=== PATIENT | male | born 1950 | race Caucasian/White ===

== ENCOUNTER 2017-09-10 20:49 | Emergency (ER) | payer MEDICARE, MEDICAID ==
[~2017-09-10] VITALS: Ht 175.3 cm; Wt 118.0 kg
[2017-09-10] MEDS ORDERED: normal saline 1000ML IV soln IVB ONE (20:55)
[2017-09-10] MEDS ORDERED: proparacaine 0.5% ophthalmic drops 15ml LEFTEYE ONE (20:55)
[2017-09-10 21:12] LABS: BASOPHILS % (AUTO) 0.1 % (0-1); EOSINOPHILS # (AUTO) 0.1 X10'3 (0-0.9); EOSINOPHILS % (AUTO) 0.9 % (0-6); HEMATOCRIT 45.1 % (42.0-52.0); HEMOGLOBIN 15.3 g/dl (14.0-17.9); LYMPHOCYTES # (AUTO) 2.9 X10'3 (1.1-4.8); LYMPHOCYTES % (AUTO) 34.1 % (21-51); MEAN CORPUSCULAR HEMOGLOBIN 26.9 PG (27.0-31.0); MEAN CORPUSCULAR HGB CONC 33.9 % (33.0-36.5); MEAN CORPUSCULAR VOLUME 79.3 FL (78-98); MEAN PLATELET VOLUME 7.1 FL (7.4-10.4); MONOCYTES # (AUTO) 1.3 X10'3 (0-0.9); MONOCYTES % (AUTO) 16.1 % (2-12); NEUTROPHILS # (AUTO) 4.1 X10'3 (1.8-7.7); NEUTROPHILS % (AUTO) 48.8 % (42-75); PLATELET COUNT 273 X10'3 (140-440); RED BLOOD COUNT 5.69 X10'6 (4.70-6.10); RED CELL DISTRIBUTION WIDTH 14.9 % (11.5-14.5); WHITE BLOOD COUNT 8.4 X10'3 (4.5-11.0)
[2017-09-10 21:28] LABS: ALANINE AMINOTRANSFERASE 49 U/L (12-78); ALBUMIN 3.3 G/DL (3.4-5.0); ALBUMIN/GLOBULIN RATIO 0.7 (1.1-1.5); ALKALINE PHOSPHATASE 72 IU/L (46-116); ANION GAP 12 (8-16); ASPARTATE AMINO TRANSFERASE 36 U/L (10-37); BILIRUBIN,TOTAL 0.4 MG/DL (0.1-1.0); BLOOD UREA NITROGEN 24 MG/DL (7-18); BUN/CREATININE RATIO 14.4 (5.4-32.0); CHLORIDE 98 MMOL/L (99-107); CREATININE 1.67 MG/DL (0.60-1.10); ETHANOL < 0.010 GM/DL (0.0-0.010); GLUCOSE 178 MG/DL (70-104); POTASSIUM 3.8 MMOL/L (3.5-5.1); SODIUM 135 MMOL/L (135-145); TOTAL CARBON DIOXIDE 25.5 MMOL/L (24-32); TOTAL PROTEIN 7.9 G/DL (6.4-8.2); eGFR 41 ML/MIN
[2017-09-10] MEDS ORDERED: PROPARACAINE/FLUORESCEIN ophthalmic drops 5ml bottle LEFTEYE ONE (21:30)
[2017-09-10] MEDS ORDERED: CEPH500C5 PO (21:46)
[2017-09-10 21:57] LABS: PROTHROMBIN TIME 10.8 SECONDS (9.0-12.0)
[2017-09-10] MEDS ORDERED: cephalexin 500mg capsule PO ONE (22:00)
[2017-09-10 22:09] VITALS: BP 143/79
== END 2017-09-10 22:18 | disposition home or self-care (01) ==
LOC: ER 20:49
DX: R21 Rash and other nonspecific skin eruption (principal); A48.8 Other specified bacterial diseases; I25.10 Atherosclerotic heart disease of native coronary artery without angina pectoris; I10 Essential (primary) hypertension; E11.9 Type 2 diabetes mellitus without complications; Z79.899 Other long term (current) drug therapy
CPT/HCPCS: 36415; 71045; 80053; 80320; 82948; 85025; 85610; 93005; 99285; J7030

== ENCOUNTER 2017-11-22 23:36 | Inpatient (IN) | payer MEDICARE, MEDICAID ==
[~2017-11-22] VITALS: Ht 175.3 cm; Wt 129.0 kg
[~2017-11-22 23:36] MED LIST: CEPH500C5 PO
[2017-11-23] MEDS ORDERED: ondansetron/PF 4mg/2ml inj IV ONE (00:10)
[2017-11-23] MEDS ORDERED: morphine 4 MG/ML inj SYRINge IV ONE (00:10)
[2017-11-23] MEDS ORDERED: normal saline 1000ML IV soln IVB ONE (00:10)
[2017-11-23 01:04] LABS: BASOPHILS % (AUTO) 0.2 % (0-1); EOSINOPHILS % (AUTO) 0 % (0-6); HEMATOCRIT 44.8 % (42.0-52.0); HEMOGLOBIN 14.1 g/dl (14.0-17.9); LYMPHOCYTES # (AUTO) 1.2 X10'3 (1.1-4.8); LYMPHOCYTES % (AUTO) 11.2 % (21-51); MEAN CORPUSCULAR HEMOGLOBIN 26.5 PG (27.0-31.0); MEAN CORPUSCULAR HGB CONC 31.4 % (33.0-36.5); MEAN CORPUSCULAR VOLUME 84.6 FL (78-98); MEAN PLATELET VOLUME 8.8 FL (7.4-10.4); MONOCYTES # (AUTO) 0.3 X10'3 (0-0.9); MONOCYTES % (AUTO) 3.1 % (2-12); NEUTROPHILS # (AUTO) 9.2 X10'3 (1.8-7.7); NEUTROPHILS % (AUTO) 85.5 % (42-75); PLATELET COUNT 229 X10'3 (140-440); RED CELL DISTRIBUTION WIDTH 16.9 % (11.5-14.5); WHITE BLOOD COUNT 10.7 X10'3 (4.5-11.0)
[2017-11-23 01:15] LABS: INR 1.9 INR; PARTIAL THROMBOPLASTIN TIME 26 SECONDS (22-32); PROTHROMBIN TIME 19.4 SECONDS (9.0-12.0)
[2017-11-23 01:29] LABS: ALANINE AMINOTRANSFERASE 198 U/L (12-78); ALBUMIN 3.2 G/DL (3.4-5.0); ALBUMIN/GLOBULIN RATIO 0.7 (1.1-1.5); ALKALINE PHOSPHATASE 74 IU/L (46-116); ANION GAP 17 (8-16); ASPARTATE AMINO TRANSFERASE 106 U/L (10-37); BILIRUBIN,TOTAL 2.5 MG/DL (0.1-1.0); BLOOD UREA NITROGEN 61 MG/DL (7-18); BUN/CREATININE RATIO 25.1 (5.4-32.0); CALCIUM 8.6 MG/DL (8.5-10.1); CHLORIDE 97 MMOL/L (99-107); CREATININE 2.43 MG/DL (0.60-1.10); GLUCOSE 161 MG/DL (70-104); LIPASE 217 U/L (73-393); MAGNESIUM 1.7 MG/DL (1.5-2.4); POTASSIUM 5.2 MMOL/L (3.5-5.1); SODIUM 132 MMOL/L (135-145); TOTAL CARBON DIOXIDE 18.3 MMOL/L (24-32); TOTAL PROTEIN 7.6 G/DL (6.4-8.2); eGFR 27 ML/MIN
[2017-11-23] MEDS ORDERED: normal saline 1000ml 1,000 ML IV ONE ×2 (01:45→08:20)
[2017-11-23] MEDS ORDERED: EFF25T PO (02:13)
[2017-11-23] MEDS ORDERED: BENA20TA82 PO (02:13)
[2017-11-23] MEDS ORDERED: COU4T PO (02:13)
[2017-11-23] MEDS ORDERED: GABA-530 PO (02:13)
[2017-11-23] MEDS ORDERED: GLIM4TAB79 PO (02:13)
[2017-11-23] MEDS ORDERED: BECL10.62 (02:13)
[2017-11-23] MEDS ORDERED: PANT20TA2 PO (02:13)
[2017-11-23] MEDS ORDERED: TIOT18CA3 (02:13)
[2017-11-23] MEDS ORDERED: ALBU18HF2 INH (02:13)
[2017-11-23 02:17] LABS: CLARITY,URINE CLEAR (Clear); COLOR,URINE YELLOW (Yellow); GLUCOSE, URINE NEGATIVE (Neg); KETONES,URINE NEGATIVE (Neg); LEUKOCYTE ESTERASE ,URINE SMALL (Neg); NITRITES, URINE NEGATIVE (Neg); OCCULT BLOOD,URINE MODERATE (Neg); PH,URINE 5.5 (4.8-8.0); PROTEIN,URINE 100 mg/dl (Neg)
[2017-11-23 02:23] LABS: UA COLLECTION TYPE CLN CATCH MIDSTREAM
[2017-11-23 02:24] LABS: WBC,URINE 20-30 /HPF (0-4)
[2017-11-23 02:25] LABS: BACTERIA,URINE 2+ /HPF (Neg); SQUAMOUS EPITHELIAL CELL,UR FEW /LPF (FEW); WBC CLUMPS,URINE FEW /HPF (NEGATIVE)
[2017-11-23] MEDS ORDERED: acetaminophen 325mg tablet PO PRN (02:45)
[2017-11-23] MEDS ORDERED: HYDROmorphone inj. 0.5 MG/0.5 ML DISP.SYRIN IV PRN ×2 (02:45)
[2017-11-23] MEDS ORDERED: sodium bicarbonate inj. 133.8 MEQ in dextrose 5%-water 1,001.3333 ML IV SCH (02:45)
[2017-11-23] MEDS ORDERED: magnesium hydroxide 30ml (MOM) UD suspension PO PRN (02:45)
[2017-11-23] MEDS ORDERED: mag hydrox/Alum hydrox/simeth 30ml oral suspension PO PRN (02:45)
[2017-11-23] MEDS ORDERED: sodium bicarbonate (8.4%) inj. 150 MEQ in dextrose 5%-water 1,000 ML IV SCH ×2 (02:45→03:22)
[2017-11-23] MEDS ORDERED: MESSAGE TO PHARMACY PO ONE (02:50)
[2017-11-23] MEDS ORDERED: dextrose 50%-water 50ml dispensing syringe IV PRN (02:50)
[2017-11-23] MEDS ORDERED: dextrose ORAL solution 15 GM/59 ML bottle PO PRN ×2 (02:50)
[2017-11-23] MEDS ORDERED: albuterol 2.5 MG/3 ML nebule NEB PRN (02:50)
[2017-11-23] MEDS ORDERED: glucagon, human recombinant 1mg kit SUBCUT PRN (02:50)
[2017-11-23 03:45] VITALS: BP 142/89
[2017-11-23 06:00] VITALS: BP 141/90
[2017-11-23] MEDS: gabapentin 100mg capsule PO SCH ×2 (07:27→16:52)
[2017-11-23] MEDS: pantoprazole 40mg Tablet.DR PO SCH (07:27)
[2017-11-23] MEDS: ondansetron/PF 4mg/2ml inj IV PRN (07:40)
[2017-11-23] MEDS ORDERED: warfarin 4mg tablet PO SCH (08:00)
[2017-11-23] MEDS ORDERED: magnesium 1gm/100ml D5W IVPB 100 ML IV PRN (08:10)
[2017-11-23] MEDS ORDERED: heparin 10,000 units/1 ML INJ IV ONE (08:10)
[2017-11-23] MEDS ORDERED: potassium Cl 20 mEq SR tablet PO PRN ×2 (08:10)
[2017-11-23] MEDS ORDERED: potassium Cl 40MEQ/NS 500ml 500 ML IV PRN ×2 (08:10)
[2017-11-23] MEDS ORDERED: sodium polystyrene sulfonate 15gm/60ml oral suspension PO ONE (08:10)
[2017-11-23] MEDS ORDERED: magnesium Cl slow-release 64mg tablet PO PRN (08:10)
[2017-11-23] MEDS: venlafaxine 25mg tablet PO SCH (08:24)
[2017-11-23] MEDS: insulin Lispro (HumaLOG) vial - multi-dose SQ SCH ×2 (08:31→13:01)
[2017-11-23 09:03] LABS: BASOPHILS % (AUTO) 0.2 % (0-1); EOSINOPHILS # (AUTO) 0.2 X10'3 (0-0.9); EOSINOPHILS % (AUTO) 1.6 % (0-6); HEMATOCRIT 41.2 % (42.0-52.0); HEMOGLOBIN 13.3 g/dl (14.0-17.9); LYMPHOCYTES % (AUTO) 8.7 % (21-51); MEAN CORPUSCULAR HEMOGLOBIN 27.1 PG (27.0-31.0); MEAN CORPUSCULAR HGB CONC 32.3 % (33.0-36.5); MEAN PLATELET VOLUME 8.9 FL (7.4-10.4); MONOCYTES # (AUTO) 0.4 X10'3 (0-0.9); NEUTROPHILS # (AUTO) 9.4 X10'3 (1.8-7.7); NEUTROPHILS % (AUTO) 85.5 % (42-75); PLATELET COUNT 229 X10'3 (140-440); RED BLOOD COUNT 4.91 X10'6 (4.70-6.10); RED CELL DISTRIBUTION WIDTH 17.1 % (11.5-14.5)
[2017-11-23 09:14] LABS: INR 2.1 INR; PARTIAL THROMBOPLASTIN TIME 30 SECONDS (22-32); PROTHROMBIN TIME 21.1 SECONDS (9.0-12.0)
[2017-11-23] MEDS: heparin 25,000 UNIT/250ml bag 250 ML IV SCH ×3 (10:35→19:48)
[2017-11-23] MEDS: CefTRIAXone/D5W-Rocephin 1gm 50 ML IV SCH (10:45)
[2017-11-23 11:00] VITALS: BP_SYST 117; BP_SYST 91; BP_DIAS 63; BP_DIAS 84
[2017-11-23 15:00] VITALS: BP 152/91
[2017-11-23] MEDS ORDERED: metoprolol tartrate 1mg/ml inj IV PRN (15:50)
[2017-11-23] MEDS ORDERED: regadenoson 0.4mg/5ml syringe IV ONE (15:50)
[2017-11-23] MEDS ORDERED: CAFFEINE CITRATE 60 MG/3 ML injection vial IV PRN (15:50)
[2017-11-23] MEDS: sodium bicarbonate (8.4%) inj. 100 MEQ in sodium chloride 0.45% 1,000 ML IV SCH (16:40)
[2017-11-23] MEDS: povidone-iodine 120ml topical solution TP SCH (17:02)
[2017-11-23 19:00] VITALS: BP 131/78
[2017-11-23 20:50] LABS: ABG BASE EXCESS -11.6 mmol/L (-2.0-3.0); ABG HCO3 11.2 mmol/L (22.0-26.0); ABG OXYGEN SATURATION 97.7 % (95-98); ABG PCO2 (T) 19.9 mmHg (35.0-48.0); ABG PH (T) 7.367 (7.350-7.450); ABG PO2 (T) 110.7 mmHg (83-108); ALLEN'S TEST Positive; FCOHb 0.9 % (0.5-1.5); FLOW 2 L/min; FMetHb 0.2 % (0.3-1.12); FO2Hb 96.6 % (94-100); TOTAL HEMOGLOBIN 14.5 G/dl (14.0-18.0)
[2017-11-23] MEDS ORDERED: warfarin 10mg tablet PO SCH (21:00)
[2017-11-23] MEDS: insulin glargine (Lantus) pen - multi-dose SQ SCH (22:04)
[2017-11-23 23:00] VITALS: BP 130/80
[2017-11-24] VITALS (11 sets, daily range): BP systolic 129–152; BP diastolic 62–101
[2017-11-24] MEDS: heparin 10,000 units/1 ML INJ IV PRN ×2 (00:28→21:39)
[2017-11-24] MEDS: heparin 25,000 UNIT/250ml bag 250 ML IV SCH ×3 (00:30→17:50)
[2017-11-24] MEDS: gabapentin 100mg capsule PO SCH ×3 (00:34→16:00)
[2017-11-24] MEDS: ondansetron/PF 4mg/2ml inj IV PRN ×3 (02:18→21:20)
[2017-11-24] MEDS: nitroGLYCERIN 0.4mg SUBLingual tab SL PRN ×3 (05:51→06:13)
[2017-11-24] MEDS: pantoprazole 40mg Tablet.DR PO SCH (07:13)
[2017-11-24] MEDS: CefTRIAXone/D5W-Rocephin 1gm 50 ML IV SCH (07:14)
[2017-11-24 07:22] LABS: BASOPHILS % (AUTO) 0.1 % (0-1); EOSINOPHILS % (AUTO) 0 % (0-6); HEMATOCRIT 39.1 % (42.0-52.0); HEMOGLOBIN 12.8 g/dl (14.0-17.9); LYMPHOCYTES # (AUTO) 0.8 X10'3 (1.1-4.8); LYMPHOCYTES % (AUTO) 5.2 % (21-51); MEAN CORPUSCULAR HEMOGLOBIN 27.5 PG (27.0-31.0); MEAN CORPUSCULAR HGB CONC 32.7 % (33.0-36.5); MEAN CORPUSCULAR VOLUME 83.9 FL (78-98); MEAN PLATELET VOLUME 8.8 FL (7.4-10.4); MONOCYTES # (AUTO) 0.6 X10'3 (0-0.9); MONOCYTES % (AUTO) 3.5 % (2-12); NEUTROPHILS # (AUTO) 14.8 X10'3 (1.8-7.7); NEUTROPHILS % (AUTO) 91.2 % (42-75); PLATELET COUNT 194 X10'3 (140-440); RED BLOOD COUNT 4.66 X10'6 (4.70-6.10); RED CELL DISTRIBUTION WIDTH 16.9 % (11.5-14.5); WHITE BLOOD COUNT 16.2 X10'3 (4.5-11.0)
[2017-11-24] MEDS: morphine 2 MG/ML inj. syringe IV PRN ×2 (07:31→21:20)
[2017-11-24] MEDS: venlafaxine 25mg tablet PO SCH (07:32)
[2017-11-24 07:39] LABS: ALANINE AMINOTRANSFERASE 348 U/L (12-78); ALBUMIN 2.5 G/DL (3.4-5.0); ALBUMIN/GLOBULIN RATIO 0.7 (1.1-1.5); ALKALINE PHOSPHATASE 62 IU/L (46-116); ANION GAP 13 (8-16); ASPARTATE AMINO TRANSFERASE 310 U/L (10-37); BILIRUBIN,TOTAL 1.7 MG/DL (0.1-1.0); BLOOD UREA NITROGEN 79 MG/DL (7-18); BUN/CREATININE RATIO 31.6 (5.4-32.0); CALCIUM 7.8 MG/DL (8.5-10.1); CHLORIDE 96 MMOL/L (99-107); GLUCOSE 219 MG/DL (70-104); POTASSIUM 4.6 MMOL/L (3.5-5.1); SODIUM 133 MMOL/L (135-145); TOTAL CARBON DIOXIDE 23.8 MMOL/L (24-32); TOTAL PROTEIN 6.1 G/DL (6.4-8.2); eGFR 26 ML/MIN
[2017-11-24] MEDS: povidone-iodine 120ml topical solution TP SCH (08:00)
[2017-11-24] MEDS ORDERED: regadenoson 0.4mg/5ml syringe IV ONE (09:06)
[2017-11-24] MEDS ORDERED: CAFFEINE CITRATE 60 MG/3 ML injection vial IV ONE (09:06)
[2017-11-24] MEDS ORDERED: LIDOcaine 1%/PF 5ML 10 MG/ML VIAL SQ ONE (13:35)
[2017-11-24] MEDS ORDERED: fentaNYL/PF 50MCG/1 ML 2ML syringe IV PRN (13:35)
[2017-11-24] MEDS ORDERED: midazolam 2 mg/2 ml injection IV PRN (13:35)
[2017-11-24] MEDS ORDERED: heparin 1,000 UNITS/NS 500ml 500 ML ICATH ONE (13:35)
[2017-11-24] MEDS ORDERED: LIDOcaine 1%/PF 5ML 10 MG/ML VIAL ONE (13:44)
[2017-11-24] MEDS ORDERED: iohexol 300mg/ml 100ml inj. ONE (13:44)
[2017-11-24] MEDS: sodium bicarbonate (8.4%) inj. 100 MEQ in sodium chloride 0.45% 1,000 ML IV SCH (13:45)
[2017-11-24] MEDS ORDERED: heparin 1,000 UNITS/NS 500ml 500 ML ONE ×2 (14:01→15:24)
[2017-11-24] MEDS ORDERED: ondansetron/PF 4mg/2ml inj ONE (14:01)
[2017-11-24] MEDS ORDERED: fentaNYL/PF 50MCG/1 ML 2ML syringe ONE (14:19)
[2017-11-24] MEDS: insulin glargine (Lantus) pen - multi-dose SQ SCH (21:09)
[2017-11-25] MEDS: gabapentin 100mg capsule PO SCH ×3 (00:41→16:21)
[2017-11-25 02:00] VITALS: BP 142/73
[2017-11-25 05:03] LABS: MEAN PLATELET VOLUME 8.7 FL (7.4-10.4)
[2017-11-25 05:08] LABS: HEMATOCRIT 43.7 % (42.0-52.0); HEMOGLOBIN 14.3 g/dl (14.0-17.9); MEAN CORPUSCULAR HEMOGLOBIN 27.5 PG (27.0-31.0); MEAN CORPUSCULAR HGB CONC 32.6 % (33.0-36.5); MEAN CORPUSCULAR VOLUME 84.2 FL (78-98); PLATELET COUNT 196 X10'3 (140-440); RED BLOOD COUNT 5.19 X10'6 (4.70-6.10); RED CELL DISTRIBUTION WIDTH 17.7 % (11.5-14.5); WHITE BLOOD COUNT 19.2 X10'3 (4.5-11.0)
[2017-11-25 05:18] LABS: ALANINE AMINOTRANSFERASE 707 U/L (12-78); ALBUMIN 2.8 G/DL (3.4-5.0); ALBUMIN/GLOBULIN RATIO 0.7 (1.1-1.5); ALKALINE PHOSPHATASE 78 IU/L (46-116); ANION GAP 15 (8-16); ASPARTATE AMINO TRANSFERASE 589 U/L (10-37); BILIRUBIN,TOTAL 2.2 MG/DL (0.1-1.0); BLOOD UREA NITROGEN 96 MG/DL (7-18); BUN/CREATININE RATIO 32.8 (5.4-32.0); CHLORIDE 96 MMOL/L (99-107); CREATININE 2.93 MG/DL (0.60-1.10); GLUCOSE 194 MG/DL (70-104); POTASSIUM 5.5 MMOL/L (3.5-5.1); SODIUM 133 MMOL/L (135-145); TOTAL CARBON DIOXIDE 21.9 MMOL/L (24-32); eGFR 22 ML/MIN
[2017-11-25 05:35] LABS: ANISOCYTOSIS 2+; LYMPHOCYTES % (MANUAL) 1 % (21-51); MONOCYTES % (MANUAL) 3 % (2-12); NEUTROPHILS % (MANUAL) 96 % (42-75); PLATELET ESTIMATE NORMAL; TOTAL CELLS COUNTED 100
[2017-11-25 05:36] LABS: BURR CELLS 1+; POLYCHROMASIA 1+
[2017-11-25 07:00] VITALS: BP 128/85
[2017-11-25] MEDS: CefTRIAXone/D5W-Rocephin 1gm 50 ML IV SCH (07:10)
[2017-11-25] MEDS: pantoprazole 40mg Tablet.DR PO SCH (07:10)
[2017-11-25] MEDS: venlafaxine 25mg tablet PO SCH (07:10)
[2017-11-25] MEDS: povidone-iodine 120ml topical solution TP SCH (07:20)
[2017-11-25] MEDS: heparin 25,000 UNIT/250ml bag 250 ML IV SCH (08:02)
[2017-11-25] MEDS: insulin Lispro (HumaLOG) vial - multi-dose SQ SCH ×3 (08:54→17:24)
[2017-11-25] MEDS: ondansetron/PF 4mg/2ml inj IV PRN (09:47)
[2017-11-25 11:00] VITALS: BP 142/68
[2017-11-25 11:49] LABS: CLARITY,URINE CLOUDY (Clear); COLOR,URINE YELLOW (Yellow); GLUCOSE, URINE NEGATIVE (Neg); KETONES,URINE NEGATIVE (Neg); LEUKOCYTE ESTERASE ,URINE SMALL (Neg); NITRITES, URINE NEGATIVE (Neg); OCCULT BLOOD,URINE SMALL (Neg); PROTEIN,URINE TRACE mg/dl (Neg)
[2017-11-25 11:53] LABS: OSMOLALITY UA 510 MOSM/K (50-1400)
[2017-11-25 11:57] LABS: UA COLLECTION TYPE NON-SPECIFIED
[2017-11-25 11:58] LABS: SODIUM,URINE RANDOM < 15 MEQ/L
[2017-11-25 12:02] LABS: SQUAMOUS EPITHELIAL CELL,UR MODERATE /LPF (FEW); WBC,URINE 30-50 /HPF (0-4)
[2017-11-25 12:03] LABS: BACTERIA,URINE 1+ /HPF (Neg); RBC,URINE 0-2 /HPF (0-2); WBC CLUMPS,URINE FEW /HPF (NEGATIVE)
[2017-11-25] MEDS: sodium bicarbonate (8.4%) inj. 100 MEQ in sodium chloride 0.45% 1,000 ML IV SCH (13:07)
[2017-11-25] MEDS: diatr meglu/diatrizoate 30ml oral sol.-(3 dose) bottle PO SCH ×3 (13:56→18:00)
[2017-11-25 15:00] VITALS: BP 122/87
[2017-11-25 15:01] LABS: PARTIAL THROMBOPLASTIN TIME 49 SECONDS (22-32)
[2017-11-25] MEDS: metroNIDAZOLE-Flagyl 500mg/NS 100 ML IV SCH (16:21)
[2017-11-25 18:00] VITALS: BP 139/82
[2017-11-25] MEDS: furosemide 40mg/4ml inj IV SCH (21:07)
[2017-11-25] MEDS: insulin glargine (Lantus) pen - multi-dose SQ SCH (21:24)
[2017-11-25 22:00] VITALS: BP 128/64
[2017-11-26] VITALS (17 sets, daily range): BP systolic 75–136; BP diastolic 46–94
[2017-11-26] MEDS: gabapentin 100mg capsule PO SCH ×3 (01:16→16:00)
[2017-11-26] MEDS: metroNIDAZOLE-Flagyl 500mg/NS 100 ML IV SCH ×3 (01:16→18:29)
[2017-11-26] MEDS: heparin 10,000 units/1 ML INJ IV PRN (01:55)
[2017-11-26] MEDS: heparin 25,000 UNIT/250ml bag 250 ML IV SCH (02:51)
[2017-11-26] MEDS ORDERED: pantoprazole 40 MG vial IV ONE (08:20)
[2017-11-26] MEDS: morphine 2 MG/ML inj. syringe IV PRN (08:22)
[2017-11-26] MEDS: pantoprazole 40mg Tablet.DR PO SCH (08:30)
[2017-11-26] MEDS: venlafaxine 25mg tablet PO SCH (08:31)
[2017-11-26] MEDS: furosemide 40mg/4ml inj IV SCH ×2 (08:31→20:00)
[2017-11-26 08:39] LABS: BASOPHILS # (AUTO) 0.1 X10'3 (0-0.2); BASOPHILS % (AUTO) 0.8 % (0-1); EOSINOPHILS # (AUTO) 0.1 X10'3 (0-0.9); HEMATOCRIT 36.8 % (42.0-52.0); HEMOGLOBIN 12.2 g/dl (14.0-17.9); LYMPHOCYTES # (AUTO) 0.9 X10'3 (1.1-4.8); LYMPHOCYTES % (AUTO) 6.8 % (21-51); MEAN CORPUSCULAR HEMOGLOBIN 27.4 PG (27.0-31.0); MEAN CORPUSCULAR HGB CONC 33.1 % (33.0-36.5); MEAN CORPUSCULAR VOLUME 82.6 FL (78-98); MEAN PLATELET VOLUME 8.6 FL (7.4-10.4); MONOCYTES # (AUTO) 0.8 X10'3 (0-0.9); MONOCYTES % (AUTO) 6.1 % (2-12); NEUTROPHILS # (AUTO) 11.8 X10'3 (1.8-7.7); NEUTROPHILS % (AUTO) 85.3 % (42-75); PLATELET COUNT 152 X10'3 (140-440); RED BLOOD COUNT 4.45 X10'6 (4.70-6.10); RED CELL DISTRIBUTION WIDTH 17.5 % (11.5-14.5); WHITE BLOOD COUNT 13.9 X10'3 (4.5-11.0)
[2017-11-26 08:54] LABS: ALANINE AMINOTRANSFERASE 625 U/L (12-78); ALBUMIN 2.4 G/DL (3.4-5.0); ALBUMIN/GLOBULIN RATIO 0.7 (1.1-1.5); ALKALINE PHOSPHATASE 59 IU/L (46-116); ANION GAP 10 (8-16); ASPARTATE AMINO TRANSFERASE 310 U/L (10-37); BILIRUBIN,TOTAL 1.4 MG/DL (0.1-1.0); BLOOD UREA NITROGEN 99 MG/DL (7-18); BUN/CREATININE RATIO 37.5 (5.4-32.0); CALCIUM 7.3 MG/DL (8.5-10.1); CHLORIDE 98 MMOL/L (99-107); CREATININE 2.64 MG/DL (0.60-1.10); GLUCOSE 153 MG/DL (70-104); MAGNESIUM 1.8 MG/DL (1.5-2.4); POTASSIUM 3.9 MMOL/L (3.5-5.1); SODIUM 137 MMOL/L (135-145); TOTAL CARBON DIOXIDE 28.8 MMOL/L (24-32); TOTAL PROTEIN 5.9 G/DL (6.4-8.2); eGFR 24 ML/MIN
[2017-11-26] MEDS ORDERED: magnesium 1gm/100ml D5W IVPB 100 ML IV ONE ×2 (09:30)
[2017-11-26 10:45] LABS: CHOL/HDL RATIO 7.1 (0.00-4.99); CHOLESTEROL 71 MG/DL (0-200); HDL CHOLESTEROL 10 MG/DL (35-60); LDL CHOLESTEROL 47 MG/DL (50-100); TRIGLYCERIDES 56 MG/DL (20-135)
[2017-11-26 11:31] LABS: PARTIAL THROMBOPLASTIN TIME 117 SECONDS (22-32)
[2017-11-26] MEDS: pantoprazole 40MG/NS 100ML BAG 100 ML IV SCH ×3 (12:30→21:24)
[2017-11-26] MEDS ORDERED: MIDAZolam 5mg/5ml vial ONE (12:38)
[2017-11-26] MEDS ORDERED: LIDOcaine Viscous 15ml cup ONE (12:38)
[2017-11-26] MEDS ORDERED: fentaNYL/PF 50MCG/1 ML 2ML syringe ONE (12:38)
[2017-11-26] MEDS: cefepime 2g/NS 100ml ADVANTAGE 100 ML IV SCH (13:10)
[2017-11-26] MEDS: povidone-iodine 120ml topical solution TP SCH (17:04)
[2017-11-26] MEDS: sodium bicarbonate (8.4%) inj. 100 MEQ in sodium chloride 0.45% 1,000 ML IV SCH (17:04)
[2017-11-26] MEDS: lactobacillus rhamnosus 10,000 MMU CELLS/CAPSULE PO SCH (20:00)
[2017-11-26] MEDS: insulin glargine (Lantus) pen - multi-dose SQ SCH (21:00)
[2017-11-27] VITALS (23 sets, daily range): BP systolic 85–113; BP diastolic 55–76
[2017-11-27] MEDS: metroNIDAZOLE-Flagyl 500mg/NS 100 ML IV SCH ×3 (01:11→15:23)
[2017-11-27] MEDS: pantoprazole 40MG/NS 100ML BAG 100 ML IV SCH ×5 (02:39→21:38)
[2017-11-27 07:00] LABS: BASOPHILS # (AUTO) 0.1 X10'3 (0-0.2); BASOPHILS % (AUTO) 0.6 % (0-1); EOSINOPHILS % (AUTO) 0 % (0-6); HEMATOCRIT 38.5 % (42.0-52.0); HEMOGLOBIN 12.7 g/dl (14.0-17.9); LYMPHOCYTES # (AUTO) 0.8 X10'3 (1.1-4.8); LYMPHOCYTES % (AUTO) 6.9 % (21-51); MEAN CORPUSCULAR HEMOGLOBIN 27.5 PG (27.0-31.0); MEAN CORPUSCULAR HGB CONC 32.9 % (33.0-36.5); MEAN CORPUSCULAR VOLUME 83.7 FL (78-98); MEAN PLATELET VOLUME 8.8 FL (7.4-10.4); MONOCYTES # (AUTO) 0.7 X10'3 (0-0.9); MONOCYTES % (AUTO) 5.8 % (2-12); NEUTROPHILS # (AUTO) 10.1 X10'3 (1.8-7.7); NEUTROPHILS % (AUTO) 86.7 % (42-75); PLATELET COUNT 127 X10'3 (140-440); RED CELL DISTRIBUTION WIDTH 18.7 % (11.5-14.5); WHITE BLOOD COUNT 11.6 X10'3 (4.5-11.0)
[2017-11-27 07:19] LABS: ALANINE AMINOTRANSFERASE 504 U/L (12-78); ALBUMIN 2.5 G/DL (3.4-5.0); ALBUMIN/GLOBULIN RATIO 0.7 (1.1-1.5); ALKALINE PHOSPHATASE 63 IU/L (46-116); ANION GAP 9 (8-16); ASPARTATE AMINO TRANSFERASE 185 U/L (10-37); BILIRUBIN,TOTAL 1.8 MG/DL (0.1-1.0); BLOOD UREA NITROGEN 79 MG/DL (7-18); BUN/CREATININE RATIO 36.7 (5.4-32.0); CALCIUM 7.4 MG/DL (8.5-10.1); CHLORIDE 100 MMOL/L (99-107); CREATININE 2.15 MG/DL (0.60-1.10); GLUCOSE 108 MG/DL (70-104); POTASSIUM 3.3 MMOL/L (3.5-5.1); SODIUM 143 MMOL/L (135-145); TOTAL CARBON DIOXIDE 33.9 MMOL/L (24-32); TOTAL PROTEIN 6.3 G/DL (6.4-8.2); eGFR 31 ML/MIN
[2017-11-27] MEDS ORDERED: magnesium Cl slow-release 64mg tablet PO PRN (07:35)
[2017-11-27] MEDS ORDERED: potassium Cl 40MEQ/NS 500ml 500 ML IV PRN ×2 (07:35)
[2017-11-27] MEDS: cefepime 2g/NS 100ml ADVANTAGE 100 ML IV SCH (07:35)
[2017-11-27] MEDS ORDERED: magnesium 4gm in 100ml NS 100 ML IV PRN (07:35)
[2017-11-27] MEDS ORDERED: potassium Cl 20 mEq SR tablet PO PRN ×2 (07:35)
[2017-11-27] MEDS: venlafaxine 25mg tablet PO SCH (07:52)
[2017-11-27] MEDS: povidone-iodine 120ml topical solution TP SCH (07:52)
[2017-11-27] MEDS: lactobacillus rhamnosus 10,000 MMU CELLS/CAPSULE PO SCH ×2 (07:52→20:00)
[2017-11-27] MEDS: gabapentin 100mg capsule PO SCH ×3 (07:52→15:22)
[2017-11-27] MEDS: furosemide 40mg/4ml inj IV SCH ×2 (07:53→20:00)
[2017-11-27] MEDS ORDERED: cefepime 2gm inj IV SCH (08:00)
[2017-11-27 08:27] LABS: MAGNESIUM 1.8 MG/DL (1.5-2.4)
[2017-11-27] MEDS ORDERED: etomidate 2mg/ml inj. ONE (09:00)
[2017-11-27] MEDS ORDERED: WATER ONE (09:00)
[2017-11-27] MEDS ORDERED: rocuronium 10mg/ml inj IV ONE (09:00)
[2017-11-27] MEDS ORDERED: sodium bicarbonate (8.4%) 1 mEq/ml syringe ONE (09:00)
[2017-11-27] MEDS ORDERED: DEXTROSE 5% ONE (09:00)
[2017-11-27] MEDS ORDERED: epiNEPHrine 0.1mg/ml 10ml syringe ONE ×2 (09:00)
[2017-11-27] MEDS ORDERED: sodium bicarbonate 1mEq/ml 10ml Pediatric syringe/vial IV ONE (09:00)
[2017-11-27] MEDS ORDERED: 0.9 % SODIUM CHLORIDE 10 ML VIAL ONE ×2 (09:00)
[2017-11-27] MEDS: sodium bicarbonate (8.4%) inj. 100 MEQ in sodium chloride 0.45% 1,000 ML IV SCH ×2 (09:37→19:29)
[2017-11-27 09:45] LABS: ANISOCYTOSIS 2+; MICROCYTOSIS 1+; PLATELET ESTIMATE DECREASED
[2017-11-27 09:46] LABS: POLYCHROMASIA 1+
[2017-11-27] MEDS: insulin Lispro (HumaLOG) vial - multi-dose SQ SCH ×2 (12:53→19:32)
[2017-11-27] MEDS ORDERED: heparin 10,000 units/1 ML INJ IV PRN (16:30)
[2017-11-27] MEDS ORDERED: heparin 10,000 units/1 ML INJ IV ONE (16:30)
[2017-11-27] MEDS: heparin 25,000 UNIT/250ml bag 250 ML IV SCH (17:12)
[2017-11-27] MEDS: morphine 2 MG/ML inj. syringe IV PRN (17:30)
[2017-11-27] MEDS: insulin glargine (Lantus) pen - multi-dose SQ SCH (21:42)
[2017-11-28] VITALS (20 sets, daily range): BP systolic 87–114; BP diastolic 61–81
[2017-11-28] MEDS: metroNIDAZOLE-Flagyl 500mg/NS 100 ML IV SCH ×3 (00:37→16:14)
[2017-11-28] MEDS: gabapentin 100mg capsule PO SCH ×3 (01:09→16:14)
[2017-11-28] MEDS: heparin 25,000 UNIT/250ml bag 250 ML IV SCH ×5 (01:28→16:47)
[2017-11-28] MEDS: pantoprazole 40MG/NS 100ML BAG 100 ML IV SCH ×5 (03:44→19:20)
[2017-11-28 05:59] LABS: BASOPHILS % (AUTO) 0.2 % (0-1); EOSINOPHILS # (AUTO) 0.1 X10'3 (0-0.9); EOSINOPHILS % (AUTO) 1.1 % (0-6); HEMATOCRIT 35.5 % (42.0-52.0); HEMOGLOBIN 11.7 g/dl (14.0-17.9); LYMPHOCYTES # (AUTO) 0.9 X10'3 (1.1-4.8); LYMPHOCYTES % (AUTO) 11.3 % (21-51); MEAN CORPUSCULAR HEMOGLOBIN 27.5 PG (27.0-31.0); MEAN CORPUSCULAR HGB CONC 32.9 % (33.0-36.5); MEAN CORPUSCULAR VOLUME 83.4 FL (78-98); MEAN PLATELET VOLUME 8.9 FL (7.4-10.4); MONOCYTES # (AUTO) 0.7 X10'3 (0-0.9); MONOCYTES % (AUTO) 9.1 % (2-12); NEUTROPHILS # (AUTO) 6.1 X10'3 (1.8-7.7); NEUTROPHILS % (AUTO) 78.3 % (42-75); PLATELET COUNT 113 X10'3 (140-440); RED BLOOD COUNT 4.26 X10'6 (4.70-6.10); RED CELL DISTRIBUTION WIDTH 18.1 % (11.5-14.5); WHITE BLOOD COUNT 7.7 X10'3 (4.5-11.0)
[2017-11-28 06:28] LABS: ALANINE AMINOTRANSFERASE 355 U/L (12-78); ALBUMIN 2.2 G/DL (3.4-5.0); ALBUMIN/GLOBULIN RATIO 0.6 (1.1-1.5); ALKALINE PHOSPHATASE 54 IU/L (46-116); ANION GAP 5 (8-16); ASPARTATE AMINO TRANSFERASE 106 U/L (10-37); BILIRUBIN,TOTAL 1.5 MG/DL (0.1-1.0); BLOOD UREA NITROGEN 60 MG/DL (7-18); BUN/CREATININE RATIO 35.5 (5.4-32.0); CALCIUM 7.2 MG/DL (8.5-10.1); CHLORIDE 101 MMOL/L (99-107); CREATININE 1.69 MG/DL (0.60-1.10); GLUCOSE 119 MG/DL (70-104); POTASSIUM 3.7 MMOL/L (3.5-5.1); SODIUM 139 MMOL/L (135-145); TOTAL CARBON DIOXIDE 33.4 MMOL/L (24-32); TOTAL PROTEIN 5.7 G/DL (6.4-8.2); eGFR 41 ML/MIN
[2017-11-28 07:33] LABS: ANISOCYTOSIS 2+; MICROCYTOSIS 1+; PLATELET ESTIMATE DECREASED; POLYCHROMASIA 1+
[2017-11-28] MEDS: furosemide 40mg/4ml inj IV SCH ×2 (08:00→19:20)
[2017-11-28] MEDS: lactobacillus rhamnosus 10,000 MMU CELLS/CAPSULE PO SCH ×2 (08:24→19:20)
[2017-11-28] MEDS: venlafaxine 25mg tablet PO SCH (08:24)
[2017-11-28] MEDS: povidone-iodine 120ml topical solution TP SCH (08:27)
[2017-11-28] MEDS: cefepime 2g/NS 100ml ADVANTAGE 100 ML IV SCH (08:27)
[2017-11-28] MEDS: insulin Lispro (HumaLOG) vial - multi-dose SQ SCH ×3 (08:31→19:22)
[2017-11-28 10:03] LABS: PARTIAL THROMBOPLASTIN TIME 96 SECONDS (22-32)
[2017-11-28] MEDS ORDERED: VANCOMYCIN LEVEL IV ONE (11:30)
[2017-11-28] MEDS: morphine 2 MG/ML inj. syringe IV PRN ×2 (11:52→19:20)
[2017-11-28 16:16] LABS: PARTIAL THROMBOPLASTIN TIME 48 SECONDS (22-32)
[2017-11-28] MEDS: sodium bicarbonate (8.4%) inj. 100 MEQ in sodium chloride 0.45% 1,000 ML IV SCH (21:33)
[2017-11-28] MEDS: insulin glargine (Lantus) pen - multi-dose SQ SCH (21:41)
[2017-11-28 22:25] LABS: PARTIAL THROMBOPLASTIN TIME 106 SECONDS (22-32)
[2017-11-29] VITALS (18 sets, daily range): BP systolic 93–140; BP diastolic 63–94
[2017-11-29] MEDS: pantoprazole 40MG/NS 100ML BAG 100 ML IV SCH ×5 (00:32→19:27)
[2017-11-29] MEDS: metroNIDAZOLE-Flagyl 500mg/NS 100 ML IV SCH ×3 (00:32→15:23)
[2017-11-29] MEDS: gabapentin 100mg capsule PO SCH ×3 (00:33→15:23)
[2017-11-29] MEDS: heparin 25,000 UNIT/250ml bag 250 ML IV SCH ×3 (00:36→14:16)
[2017-11-29 02:44] LABS: ALBUMIN 2.2 G/DL (3.4-5.0); ANION GAP 3 (8-16); BLOOD UREA NITROGEN 49 MG/DL (7-18); BUN/CREATININE RATIO 28.7 (5.4-32.0); CALCIUM 7.3 MG/DL (8.5-10.1); CHLORIDE 99 MMOL/L (99-107); CREATININE 1.71 MG/DL (0.60-1.10); GLUCOSE 93 MG/DL (70-104); POTASSIUM 4.2 MMOL/L (3.5-5.1); SODIUM 136 MMOL/L (135-145); TOTAL CARBON DIOXIDE 34.3 MMOL/L (24-32); eGFR 40 ML/MIN
[2017-11-29 02:56] LABS: BASOPHILS # (AUTO) 0.1 X10'3 (0-0.2); BASOPHILS % (AUTO) 0.6 % (0-1); EOSINOPHILS # (AUTO) 0.1 X10'3 (0-0.9); EOSINOPHILS % (AUTO) 1.3 % (0-6); HEMATOCRIT 34.5 % (42.0-52.0); HEMOGLOBIN 11.2 g/dl (14.0-17.9); LYMPHOCYTES # (AUTO) 1.3 X10'3 (1.1-4.8); LYMPHOCYTES % (AUTO) 15.3 % (21-51); MEAN CORPUSCULAR HEMOGLOBIN 27.2 PG (27.0-31.0); MEAN CORPUSCULAR HGB CONC 32.5 % (33.0-36.5); MEAN CORPUSCULAR VOLUME 83.8 FL (78-98); MEAN PLATELET VOLUME 9.2 FL (7.4-10.4); MONOCYTES # (AUTO) 0.8 X10'3 (0-0.9); MONOCYTES % (AUTO) 9.1 % (2-12); NEUTROPHILS # (AUTO) 6.3 X10'3 (1.8-7.7); NEUTROPHILS % (AUTO) 73.7 % (42-75); PLATELET COUNT 113 X10'3 (140-440); RED BLOOD COUNT 4.12 X10'6 (4.70-6.10); RED CELL DISTRIBUTION WIDTH 17.7 % (11.5-14.5); WHITE BLOOD COUNT 8.6 X10'3 (4.5-11.0)
[2017-11-29] MEDS: cefepime 2g/NS 100ml ADVANTAGE 100 ML IV SCH (07:45)
[2017-11-29] MEDS: venlafaxine 25mg tablet PO SCH (07:45)
[2017-11-29] MEDS: furosemide 40mg/4ml inj IV SCH (07:45)
[2017-11-29] MEDS: lactobacillus rhamnosus 10,000 MMU CELLS/CAPSULE PO SCH ×2 (07:45→19:27)
[2017-11-29] MEDS: povidone-iodine 120ml topical solution TP SCH (07:50)
[2017-11-29] MEDS: insulin Lispro (HumaLOG) vial - multi-dose SQ SCH ×4 (08:49→21:15)
[2017-11-29] MEDS: morphine 2 MG/ML inj. syringe IV PRN ×3 (13:20→19:27)
[2017-11-29 13:49] LABS: PARTIAL THROMBOPLASTIN TIME 45 SECONDS (22-32)
[2017-11-29] MEDS: insulin glargine (Lantus) pen - multi-dose SQ SCH (21:16)
[2017-11-29] MEDS: nystatin 500,000 unit/5ML UD oral suspension PO SCH (21:16)
[2017-11-30] VITALS (28 sets, daily range): BP systolic 92–122; BP diastolic 46–85
[2017-11-30] MEDS: gabapentin 100mg capsule PO SCH ×4 (00:01→23:24)
[2017-11-30] MEDS: metroNIDAZOLE 500mg tablet PO SCH ×4 (00:01→23:24)
[2017-11-30] MEDS: pantoprazole 40MG/NS 100ML BAG 100 ML IV SCH ×5 (00:02→21:11)
[2017-11-30 02:53] LABS: BASOPHILS % (AUTO) 0.6 % (0-1); EOSINOPHILS # (AUTO) 0.1 X10'3 (0-0.9); EOSINOPHILS % (AUTO) 1.6 % (0-6); HEMATOCRIT 31.8 % (42.0-52.0); HEMOGLOBIN 10.1 g/dl (14.0-17.9); LYMPHOCYTES # (AUTO) 1.6 X10'3 (1.1-4.8); LYMPHOCYTES % (AUTO) 23.6 % (21-51); MEAN CORPUSCULAR HEMOGLOBIN 26.8 PG (27.0-31.0); MEAN CORPUSCULAR HGB CONC 31.8 % (33.0-36.5); MEAN CORPUSCULAR VOLUME 84.4 FL (78-98); MEAN PLATELET VOLUME 8.9 FL (7.4-10.4); MONOCYTES # (AUTO) 0.9 X10'3 (0-0.9); MONOCYTES % (AUTO) 12.6 % (2-12); NEUTROPHILS # (AUTO) 4.3 X10'3 (1.8-7.7); NEUTROPHILS % (AUTO) 61.6 % (42-75); PLATELET COUNT 109 X10'3 (140-440); RED BLOOD COUNT 3.76 X10'6 (4.70-6.10); RED CELL DISTRIBUTION WIDTH 18.4 % (11.5-14.5); WHITE BLOOD COUNT 6.9 X10'3 (4.5-11.0)
[2017-11-30 03:01] LABS: ANION GAP 1 (8-16); BLOOD UREA NITROGEN 48 MG/DL (7-18); CALCIUM 7.5 MG/DL (8.5-10.1); CHLORIDE 101 MMOL/L (99-107); GLUCOSE 130 MG/DL (70-104); MAGNESIUM 1.6 MG/DL (1.5-2.4); POTASSIUM 3.9 MMOL/L (3.5-5.1); SODIUM 138 MMOL/L (135-145); TOTAL CARBON DIOXIDE 36.3 MMOL/L (24-32); eGFR 47 ML/MIN
[2017-11-30 03:11] LABS: PARTIAL THROMBOPLASTIN TIME 41 SECONDS (22-32)
[2017-11-30] MEDS ORDERED: ceFAZolin 1000mg inj ONE (06:40)
[2017-11-30] MEDS ORDERED: heparin 10,000 units/1 ML INJ ONE (06:40)
[2017-11-30] MEDS: lactobacillus rhamnosus 10,000 MMU CELLS/CAPSULE PO SCH ×2 (07:56→20:00)
[2017-11-30] MEDS: nystatin 500,000 unit/5ML UD oral suspension PO SCH ×3 (07:56→21:00)
[2017-11-30] MEDS: furosemide 40mg/4ml inj IV SCH (08:00)
[2017-11-30] MEDS: povidone-iodine 120ml topical solution TP SCH (08:00)
[2017-11-30] MEDS: cefepime 2g/NS 100ml ADVANTAGE 100 ML IV SCH (08:00)
[2017-11-30] MEDS: venlafaxine 25mg tablet PO SCH (08:00)
[2017-11-30] MEDS ORDERED: midazolam 2 mg/2 ml injection ONE (08:06)
[2017-11-30] MEDS ORDERED: fentaNYL /PF 50mcg/ml 5ml ampule ONE (08:07)
[2017-11-30] MEDS ORDERED: rocuronium 10mg/ml inj IV ONE ×2 (08:08)
[2017-11-30] MEDS ORDERED: sevoflurane 250ml liquid IH ONE (08:11)
[2017-11-30] MEDS ORDERED: glycopyrrolate 0.2mg/ml inj ONE (08:11)
[2017-11-30] MEDS ORDERED: pancuronium br 1mg/ml inj IV ONE (09:53)
[2017-11-30] MEDS ORDERED: etomidate 2mg/ml inj. ONE (09:53)
[2017-11-30] MEDS ORDERED: heparin 1,000unit/ml 10ml vial 10 ML ONE (09:53)
[2017-11-30] MEDS ORDERED: ringers solution, lacted 1,000 ML IV SCH (10:39)
[2017-11-30] MEDS ORDERED: ondansetron/PF 4mg/2ml inj IV PRN ×2 (10:40→11:55)
[2017-11-30] MEDS ORDERED: morphine 4 MG/ML inj SYRINge IV PRN ×2 (10:40)
[2017-11-30] MEDS ORDERED: proCHLORperazine 10 MG/2 ml inj IV PRN (10:40)
[2017-11-30] MEDS ORDERED: meperidine/PF 25mg/ml syringe IV PRN ×3 (10:40)
[2017-11-30] MEDS ORDERED: neostigmine methylsulfate 1 MG/ML 10ml vial ONE (11:10)
[2017-11-30] MEDS: NORepinephrine 8mg/ 250ml NS 250 ML IV SCH (11:40)
[2017-11-30] MEDS ORDERED: HYDROcodone/acetaminophen 10/325mg tab PO PRN (11:55)
[2017-11-30] MEDS ORDERED: levoFLOXACIN-Levaquin 750MG/D5 150 ML IV SCH (12:05)
[2017-11-30 12:17] LABS: INR 1.3 INR; PROTHROMBIN TIME 13.6 SECONDS (9.0-12.0)
[2017-11-30 12:18] LABS: PARTIAL THROMBOPLASTIN TIME > 153 SECONDS (22-32)
[2017-11-30] MEDS: ondansetron/PF 4mg/2ml inj IV PRN (12:29)
[2017-11-30] MEDS: morphine 2 MG/ML inj. syringe IV PRN ×4 (14:55→23:25)
[2017-11-30 15:43] LABS: PARTIAL THROMBOPLASTIN TIME 39 SECONDS (22-32)
[2017-11-30] MEDS: heparin 25,000 UNIT/250ml bag 250 ML IV SCH (16:07)
[2017-11-30] MEDS: insulin glargine (Lantus) pen - multi-dose SQ SCH (21:42)
[2017-11-30] MEDS ORDERED: albumin (Human) 5% 250ml BOTTLE IV STA (22:02)
[2017-11-30 22:06] LABS: PARTIAL THROMBOPLASTIN TIME 46 SECONDS (22-32)
[2017-12-01] VITALS (33 sets, daily range): BP systolic 35–118; BP diastolic 30–70
[2017-12-01] MEDS: morphine 2 MG/ML inj. syringe IV PRN ×4 (00:20→13:42)
[2017-12-01] MEDS: pantoprazole 40MG/NS 100ML BAG 100 ML IV SCH ×2 (01:59→07:29)
[2017-12-01 03:58] LABS: BASOPHILS % (AUTO) 0 % (0-1); EOSINOPHILS # (AUTO) 0.2 X10'3 (0-0.9); EOSINOPHILS % (AUTO) 1.5 % (0-6); HEMATOCRIT 26.4 % (42.0-52.0); HEMOGLOBIN 8.4 g/dl (14.0-17.9); LYMPHOCYTES # (AUTO) 1.1 X10'3 (1.1-4.8); LYMPHOCYTES % (AUTO) 9.7 % (21-51); MEAN CORPUSCULAR HEMOGLOBIN 26.7 PG (27.0-31.0); MEAN CORPUSCULAR HGB CONC 31.9 % (33.0-36.5); MEAN CORPUSCULAR VOLUME 83.7 FL (78-98); MONOCYTES # (AUTO) 1.2 X10'3 (0-0.9); MONOCYTES % (AUTO) 10.6 % (2-12); NEUTROPHILS # (AUTO) 8.6 X10'3 (1.8-7.7); NEUTROPHILS % (AUTO) 78.2 % (42-75); PARTIAL THROMBOPLASTIN TIME 47 SECONDS (22-32); PLATELET COUNT 145 X10'3 (140-440); RED BLOOD COUNT 3.15 X10'6 (4.70-6.10); RED CELL DISTRIBUTION WIDTH 17.6 % (11.5-14.5)
[2017-12-01 04:10] LABS: ALANINE AMINOTRANSFERASE 120 U/L (12-78); ALBUMIN 2.4 G/DL (3.4-5.0); ALBUMIN/GLOBULIN RATIO 0.9 (1.1-1.5); ALKALINE PHOSPHATASE 36 IU/L (46-116); ANION GAP 7 (8-16); ASPARTATE AMINO TRANSFERASE 46 U/L (10-37); BILIRUBIN,TOTAL 1.9 MG/DL (0.1-1.0); BLOOD UREA NITROGEN 38 MG/DL (7-18); BUN/CREATININE RATIO 23.8 (5.4-32.0); CALCIUM 7.8 MG/DL (8.5-10.1); CHLORIDE 101 MMOL/L (99-107); GLUCOSE 164 MG/DL (70-104); MAGNESIUM 1.5 MG/DL (1.5-2.4); POTASSIUM 4.6 MMOL/L (3.5-5.1); SODIUM 138 MMOL/L (135-145); TOTAL CARBON DIOXIDE 29.7 MMOL/L (24-32); TOTAL PROTEIN 5.2 G/DL (6.4-8.2); eGFR 43 ML/MIN
[2017-12-01] MEDS: cefepime 2g/NS 100ml ADVANTAGE 100 ML IV SCH (07:29)
[2017-12-01] MEDS: venlafaxine 25mg tablet PO SCH (07:34)
[2017-12-01] MEDS: gabapentin 100mg capsule PO SCH ×3 (07:34→23:26)
[2017-12-01] MEDS: nystatin 500,000 unit/5ML UD oral suspension PO SCH ×3 (07:34→21:32)
[2017-12-01] MEDS: lactobacillus rhamnosus 10,000 MMU CELLS/CAPSULE PO SCH ×2 (07:34→20:00)
[2017-12-01] MEDS: metroNIDAZOLE 500mg tablet PO SCH ×3 (07:34→23:26)
[2017-12-01] MEDS: povidone-iodine 120ml topical solution TP SCH (07:35)
[2017-12-01] MEDS: furosemide 40mg/4ml inj IV SCH ×3 (07:35→23:25)
[2017-12-01] MEDS: NORepinephrine 8mg/ 250ml NS 250 ML IV SCH ×3 (08:30→19:47)
[2017-12-01] MEDS: insulin Lispro (HumaLOG) vial - multi-dose SQ SCH (09:10)
[2017-12-01 10:02] LABS: PARTIAL THROMBOPLASTIN TIME 57 SECONDS (22-32)
[2017-12-01] MEDS ORDERED: albumin (Human) 5% 250ml BOTTLE IV ONE (10:55)
[2017-12-01] MEDS ORDERED: DOBUTamine-DoBUTrex 500mg/D5W 250 ML IV SCH (14:45)
[2017-12-01 15:26] LABS: OXYGEN SATURATION (MIXED VEN) 41.8 % (60-80); PO2 MIXED VENOUS (TEMP COR) 25.9 mmHg (35-46)
[2017-12-01 15:45] LABS: PARTIAL THROMBOPLASTIN TIME > 153 SECONDS (22-32)
[2017-12-01] MEDS ORDERED: MIDAZolam 5mg/ml 2ml vial ONE (17:04)
[2017-12-01 17:10] LABS: ABG BASE EXCESS -14.8 mmol/L (-2.0-3.0); ABG HCO3 8.4 mmol/L (22.0-26.0); ABG OXYGEN SATURATION 95.8 % (95-98); ABG PCO2 (T) 14.5 mmHg (35.0-48.0); ABG PH (T) 7.379 (7.350-7.450); ABG PO2 (T) 90.1 mmHg (83-108); FCOHb 0.4 % (0.5-1.5); FLOW 2 L/min; FMetHb 0.3 % (0.3-1.12); FO2Hb 95.1 % (94-100); TOTAL HEMOGLOBIN 8.7 G/dl (14.0-18.0)
[2017-12-01] MEDS ORDERED: sodium bicarbonate (8.4%) 1 mEq/ml syringe IV ONE (17:10)
[2017-12-01] MEDS ORDERED: sodium bicarbonate (8.4%) inj. 100 MEQ in sodium chloride 0.45% 1,000 ML IV SCH (17:10)
[2017-12-01] MEDS ORDERED: vasoPRESSIN 20 units/ml inj. ONE (17:15)
[2017-12-01] MEDS ORDERED: vasopressin inj. 60 UNIT in normal saline 100ml IV soln 97 ML IV SCH (17:20)
[2017-12-01] MEDS ORDERED: amiodarone/D5 360MG/200ML BAG 200 ML IV SCH ×2 (17:20→17:31)
[2017-12-01] MEDS ORDERED: amiodarone 50MG/ML inj IV ONE ×2 (17:20→17:23)
[2017-12-01 17:23] LABS: PARTIAL THROMBOPLASTIN TIME > 153 SECONDS (22-32)
[2017-12-01 17:31] LABS: BASOPHILS % (AUTO) 0 % (0-1); EOSINOPHILS # (AUTO) 0.1 X10'3 (0-0.9); EOSINOPHILS % (AUTO) 0.8 % (0-6); LYMPHOCYTES # (AUTO) 0.6 X10'3 (1.1-4.8); MEAN CORPUSCULAR HEMOGLOBIN 26.6 PG (27.0-31.0); MEAN CORPUSCULAR HGB CONC 31.6 % (33.0-36.5); MEAN CORPUSCULAR VOLUME 84.1 FL (78-98); MEAN PLATELET VOLUME 9.1 FL (7.4-10.4); MONOCYTES # (AUTO) 1.2 X10'3 (0-0.9); MONOCYTES % (AUTO) 12.3 % (2-12); NEUTROPHILS # (AUTO) 7.5 X10'3 (1.8-7.7); NEUTROPHILS % (AUTO) 80.9 % (42-75); PLATELET COUNT 151 X10'3 (140-440); RED BLOOD COUNT 2.57 X10'6 (4.70-6.10); RED CELL DISTRIBUTION WIDTH 18.1 % (11.5-14.5); WHITE BLOOD COUNT 9.3 X10'3 (4.5-11.0)
[2017-12-01 17:34] LABS: HEMATOCRIT 21.7 % (42.0-52.0); HEMOGLOBIN 6.9 g/dl (14.0-17.9)
[2017-12-01] MEDS: vasopressin inj. 60 UNIT in normal saline 100ml IV soln 97 ML IV SCH ×2 (17:51→19:48)
[2017-12-01 17:52] LABS: ANION GAP 28 (8-16); BLOOD UREA NITROGEN 45 MG/DL (7-18); BUN/CREATININE RATIO 17.9 (5.4-32.0); CALCIUM 7.2 MG/DL (8.5-10.1); CHLORIDE 103 MMOL/L (99-107); CREATININE 2.52 MG/DL (0.60-1.10); POTASSIUM 5.9 MMOL/L (3.5-5.1); SODIUM 143 MMOL/L (135-145); eGFR 26 ML/MIN
[2017-12-01 17:55] LABS: GLUCOSE 14 MG/DL (70-104)
[2017-12-01 17:56] LABS: TOTAL CARBON DIOXIDE 12.3 MMOL/L (24-32); TROPONIN I 18.87 NG/ML (0.0-0.05)
[2017-12-01] MEDS: dextrose 50%-water 50ml dispensing syringe IV PRN ×3 (17:57→22:42)
[2017-12-01 18:02] LABS: ANISOCYTOSIS 2+; PLATELET ESTIMATE NORMAL
[2017-12-01 18:03] LABS: POIKILOCYTOSIS FEW; POLYCHROMASIA 1+; SPHEROCYTES FEW
[2017-12-01 18:21] LABS: ABG BASE EXCESS -17.1 mmol/L (-2.0-3.0); ABG HCO3 9.1 mmol/L (22.0-26.0); ABG OXYGEN SATURATION 99.2 % (95-98); ABG PCO2 (T) 22.9 mmHg (35.0-48.0); ABG PH (T) 7.217 (7.350-7.450); ABG PO2 (T) 299.7 mmHg (83-108); FMetHb 0.5 % (0.3-1.12); FO2Hb 98.7 % (94-100); MINUTE VOLUME 14 L/min; PEEP 5 cm H2O; RESPIRATORY RATE 35 b/min; RESPIRATORY RATE (OBSERVED) 35 b/min; TIDAL VOLUME 400 mL; TOTAL HEMOGLOBIN 7.2 G/dl (14.0-18.0)
[2017-12-01] MEDS ORDERED: pantoprazole 40 MG vial IV SCH (20:00)
[2017-12-01] MEDS: insulin glargine (Lantus) pen - multi-dose SQ SCH (20:25)
[2017-12-01] MEDS ORDERED: epiNEPHrine inj 5 MG, calcium chloride inj. 1,000 MG in normal saline 250ml IV soln 235 ML IV PRN (21:20)
[2017-12-02] VITALS: BP 29/20
[2017-12-02] MEDS: dextrose 50%-water 50ml dispensing syringe IV PRN (00:54)
[2017-12-02 01:00] VITALS: BP_DIAS 24
[2017-12-02 01:05] VITALS: BP_DIAS 0
[2017-12-03] MEDS ORDERED: levoFLOXACIN-Levaquin 500mg/D5 100 ML IV SCH (08:00)
== END 2017-12-02 01:06 | disposition expired | DRG 252 ==
LOC: ER 23:36 → ED HOLD 11-23 02:41 → PCU 3S 11-23 03:30 → ICU 2S 11-24 16:31 → PCU 3S 11-24 16:54 → ICU 2S 11-26 16:35
PROVIDERS: ADMIT Internal Medicine; ATTEND Family Medicine
PROC: 4A02XM4 Measurement of Cardiac Total Activity, External Approach (ICD-10-PCS; 2017-11-24)
PROC: 3E033HZ Introduction of Radioactive Substance into Peripheral Vein, Percutaneous Approach (ICD-10-PCS; 2017-11-24)
PROC: B41G1ZZ Fluoroscopy of Left Lower Extremity Arteries using Low Osmolar Contrast (ICD-10-PCS; 2017-11-24)
PROC: 0DJ08ZZ Inspection of Upper Intestinal Tract, Via Natural or Artificial Opening Endoscopic (ICD-10-PCS; 2017-11-26)
PROC: 041L0JH Bypass Left Femoral Artery to Right Femoral Artery with Synthetic Substitute, Open Approach (ICD-10-PCS; 2017-11-30)
PROC: 02HV33Z Insertion of Infusion Device into Superior Vena Cava, Percutaneous Approach (ICD-10-PCS; 2017-11-30)
PROC: B548ZZA Ultrasonography of Superior Vena Cava, Guidance (ICD-10-PCS; 2017-11-30)
PROC: 04CL0ZZ Extirpation of Matter from Left Femoral Artery, Open Approach (ICD-10-PCS; principal; 2017-11-30 08:11)
PROC: 30233N1 Transfusion of Nonautologous Red Blood Cells into Peripheral Vein, Percutaneous Approach (ICD-10-PCS; 2017-12-01)
DX: E11.51 Type 2 diabetes mellitus with diabetic peripheral angiopathy without gangrene (principal); I50.23 Acute on chronic systolic (congestive) heart failure; N17.0 Acute kidney failure with tubular necrosis; J69.0 Pneumonitis due to inhalation of food and vomit; K26.4 Chronic or unspecified duodenal ulcer with hemorrhage; I21.9 Acute myocardial infarction, unspecified; N18.4 Chronic kidney disease, stage 4 (severe); E87.4 Mixed disorder of acid-base balance; I13.0 Hypertensive heart and chronic kidney disease with heart failure and stage 1 through stage 4 chronic kidney disease, or unspecified chronic kidney disease; E87.1 Hypo-osmolality and hyponatremia; L03.90 Cellulitis, unspecified; I74.3 Embolism and thrombosis of arteries of the lower extremities; I99.8 Other disorder of circulatory system; E11.621 Type 2 diabetes mellitus with foot ulcer; E11.65 Type 2 diabetes mellitus with hyperglycemia; M85.80 Other specified disorders of bone density and structure, unspecified site; R57.0 Cardiogenic shock; D64.9 Anemia, unspecified; K57.30 Diverticulosis of large intestine without perforation or abscess without bleeding; E11.22 Type 2 diabetes mellitus with diabetic chronic kidney disease; K29.70 Gastritis, unspecified, without bleeding; K29.80 Duodenitis without bleeding; K22.8 Other specified diseases of esophagus; R79.1 Abnormal coagulation profile; L97.529 Non-pressure chronic ulcer of other part of left foot with unspecified severity; L97.519 Non-pressure chronic ulcer of other part of right foot with unspecified severity; I25.5 Ischemic cardiomyopathy; I48.91 Unspecified atrial fibrillation; I35.2 Nonrheumatic aortic (valve) stenosis with insufficiency; J44.9 Chronic obstructive pulmonary disease, unspecified; K21.0 Gastro-esophageal reflux disease with esophagitis; Z66 Do not resuscitate; Z79.899 Other long term (current) drug therapy; Z79.01 Long term (current) use of anticoagulants; Z91.19 Patient's noncompliance with other medical treatment and regimen; Z95.1 Presence of aortocoronary bypass graft; Z95.2 Presence of prosthetic heart valve; Z86.14 Personal history of Methicillin resistant Staphylococcus aureus infection; Z87.891 Personal history of nicotine dependence
CPT/HCPCS: 36245; 36415; 36600; 71045; 74176; 75710; 76775; 76937; 78452; 80048; 80053; 80061; 81001; 82570; 82803; 82810; 82948; 83036; 83605; 83690; 83735; 83874; 83880; 83935; 84100; 84132; 84133; 84145; 84156; 84300; 84484; 85018; 85025; 85347; 85384; 85610; 85730; 86885; 86900; 86901; 86920; 87040; 87070; 87077; 87088; 87186; 88304; 93005; 93017; 93306; 93308; 93922; 93925; 93971; 94002; 94003; 96361; 96374; 96375; 99285; A4620; A4649; A6213; A6219; A6258; A6449; A6454; A7000; A9270; A9500; C1757; C1758; C1768; C1769; C1894; C9113; G0378; G0500; J0171; J0282; J0690; J0692; J0696; J1170; J1250; J1644; J1815; J1940; J1956; J2001; J2250; J2270; J2405; J2710; J3010; J3370; J3480; J3490; J7030; J7060; J7070; J7120; P9016; P9045; Q9963; Q9967